=== PATIENT | female | born 1985 | race Caucasian/White ===

== ENCOUNTER → 2017-05-08 | Outpatient (CLI) | payer OTHER ==
--- NOTE | 2017-05-08 15:13 | MAMMOGRAPHY REPORT ---
BILATERAL DIGITAL DIAGNOSTIC MAMMOGRAM TOMOSYNTHESIS WITH CAD AND TARGETED RIGHT ULTRASOUND: 05/08/20 CLINICAL HISTORY: 32-year-old woman presents with a palpable lump in the right breast that she has no ticed since late March 2017. On physical exam her provider was able to feel the lump as well as a possible lump in the right axilla. No skin erythema, thickening or nipple discharge. TECHNIQUE: Bilateral breast tomosynthesis in addition to standard 2D mammography was performed. Curre nt study was also evaluated with a Computer Aided Detection (CAD) system. COMPARISON: No prior exams were available for comparison. BREAST COMPOSITION: The tissue of both breasts is heterogeneously dense, which may obscure small mas ses. FINDINGS: A triangle shaped palpable marker was placed on the skin of the 12:00 anterior right breast , denoting the area of palpable lump pointed out by the patient. There are a few punctate benign-dixon earing microcalcifications in the breasts. No obvious mass, focal area of architectural distortion, asymmetry or suspicious microcalcifications. Targeted ultrasound was performed in the area of palpable lump pointed out by the patient, in the 12: 00 right breast, 1 cm from the nipple. On palpation, there is a discrete firm mobile 1 to 1 and 1/2 centimeters mass. On ultrasound in the area of concern, there is a lobulated solid appearing mass ve rsus conglomerate of small masses measuring 8.2 x 5.0 x 8.0 mm. This could represent benign stromal fibrosis or a benign solid mass such as a fibroadenoma. Given the solid and palpable nature, definit cecelia characterization with tissue sampling via an ultrasound-guided core biopsy is recommended. Addit ional sonographic evaluation performed throughout the right axilla demonstrates several morphological ly normal lymph nodes within cortices. No suspicious mass or suspicious lymphadenopathy is identifie d. IMPRESSION: ACR BI-RADS CATEGORY 4: SUSPICIOUS, TARGETED ULTRASOUND ACR BI-RADS CATEGORY 4: SUSPICIO US 1. There is a lobulated hypoechoic solid mass in the 12:00 right breast, 1 cm from the nipple that c ould represent a benign mass such as a fibroadenoma or alternatively benign stromal fibrosis. Given that this area is palpable and appears solid on ultrasound, definitive characterization with an ultra sound-guided core biopsy is recommended to exclude phyllodes or malignancy. 2. No suspicious adenopathy or suspicious mass identified in the right axilla in the area of palpabl e concern identified by the patient's provider. Therefore, clinical follow-up is recommended. 3. No mammographic evidence of malignancy in the left breast. These results and recommendations were discussed with the patient at the time of the exam. She tenta tively scheduled the right breast ultrasound guided core biopsy prior to leaving our department. Approximately 10% of breast cancers are not detected with mammography. A negative mammographic report should not delay biopsy if a clinically suggestive mass is present. Leyla Fischer M.D. ay/:05/08/2017 13:20:52 Clinical Sales Consultant: Alvaro WIGGINS(Britt)(Cat[place]), [facility] letter sent: Abnormal 4/5 BI-RADS Code: ACR BI-RADS Category 4: Suspicious Ultrasound BI-RADS: ACR BI-RADS Category 4: Suspici ous
== END | disposition home or self-care (01) ==
LOC: C.MAMM 08:11
PROVIDERS: ATTEND Nurse Practitioner Women's Health
DX: N63.20 Unspecified lump in the left breast, unspecified quadrant (principal); N63.10 Unspecified lump in the right breast, unspecified quadrant

== ENCOUNTER → 2017-08-23 | Outpatient (CLI) | payer OTHER ==
--- NOTE | 2017-08-23 11:16 | Discharge Instructions ---
Discharge Instructions Procedure Procedure Date: Aug 23, 2017. Reason for visit: Right Palpable Mass. Discharge Discharge Date: Aug 23, 2017. Discharge Diagnosis: post right breast ultrasound guided core biopsy Instructions Activity Recommendations: Additional Limitations (see below) Return to School/Work: no limitations Recommended Home Diet: No Limitations Provider Instructions: ACTIVITY RECOMMENDATIONS: * No lifting, pushing, pulling or exercising the affected side for three days. RETURN TO SCHOOL/WORK: * You may return to work/school after the procedure, but do not perform any strenuous activities for 24 to 48 hours. MEDICATIONS: * Tylenol (two 325 mg) every four to six hours if needed for mild pain (if not allergic to Tylenol). DIET: * Resume previous diet. SPECIAL CARE INSTRUCTIONS: * Keep biopsy site dry for 24 hours. May shower after 24 hours, but do not soak (bathe) incision. * May remove Tegaderm (plastic patch) tomorrow AFTER showering. * Leave the steri-strips on for one week. Allow the steri-strips to fall off by themselves. If not off after one week, you may remove them. You may place a Bandaid crosswise over the strips, if desired. * Apply ice 10 minutes on and 10 minutes off as needed. * Wear a bra at bedtime to sleep more comfortably for 2-3 days. * Your referring physician should have the results after approximately 5 to 7 business days. * Call for unusual bleeding, fever, drainage, etc or if you have any questions call [phone] during normal business hours or after hours call Dr Fischer, . FOLLOW UP VISIT: Follow-up with Referring Physician as scheduled. Sumanth Walker Recommendations: Call your doctor if: * Temperature above 101 degrees * Pain not relieved by pain medicine ordered * There is increased drainage or redness from any incision * You have any unanswered questions or concerns. Your Doctors Instructions noted above were prepared by provider Leyla Fischer. Patient Signature Section: Patient Instructions Signature Page Ludivina Smith Patient (or Guardian) Signature/Date: I have read and understand the instructions given to me by my caregivers. Caregiver/RN/Doctor Signature/Date: The above-named patient and/or guardian has received patient instructions on this date. + Original Patient Signature Page (only) stays with chart. Please make copy for patient.
--- NOTE | 2017-08-23 15:38 | MAMMOGRAPHY REPORT ---
UNILATERAL RIGHT DIGITAL DIAGNOSTIC MAMMOGRAM TOMOSYNTHESIS: 08/23/2017 CLINICAL HISTORY: Status post ultrasound-guided core biopsy of a solid palpable mass in the 12:00 rig ht breast. Please refer to the report from right breast ultrasound-guided core biopsy performed at the same time for full detail. IMPRESSION: POST PROCEDURE IMAGING FOR MARKER PLACEMENT Please refer to the report from right breast ultrasound-guided core biopsy performed at the same time for full detail. Approximately 10% of breast cancers are not detected with mammography. A negative mammographic report should not delay biopsy if a clinically suggestive mass is present. Leyla Fischer M.D. ay/:08/23/2017 11:15:15 Automobile Accessories Installer: Marina BOOTH)(M), [facility] BI-RADS Code: Post Procedure Imaging For Marker Placement
--- NOTE | 2017-08-24 15:15 | MAMMOGRAPHY REPORT ---
ULTRASOUND GUIDED BIOPSY RIGHT BREAST: 08/23/2017 CLINICAL HISTORY: 32-year-old woman initially presented with a palpable lump in April 2017. Today she reports she feels 2 lumps and thinks that the palpable lump may have increased in size. No skin thickening or nipple discharge. COMPARISON: Bilateral diagnostic mammograms and right breast ultrasound dated 05/08/2017. PATIENT CONSENT: The procedure, risks and benefits were discussed with the patient and informed conse nt was obtained both verbally and in writing. Specific risks to this procedure include: bleeding, in fection, puncture of adjacent structure, nontarget biopsy, sampling error, pain, metal allergy and me dication reaction. PROCEDURE DESCRIPTION: Prior to the biopsy the patient reported her palpable lump in the 12:00 anteri or right breast had increased in size and now there were 2 lumps. Therefore, repeat targeted ultrasou nd was performed in the area of palpable concern prior to biopsy. The largest palpable pea-sized lum p is in the 12:00 periareolar right breast and targeted ultrasound over this area demonstrates an irr egular hypoechoic solid vascular mass measuring approximately 9.4 x 5.8 mm. Therefore, this is the i ntended target for core biopsy, given that it corresponds to the dominant palpable mass. The second area previously observed on prior ultrasound appears as dense stromal fibrosis, and given that it is not as prominent on palpation, this can be reassessed in 6 months with repeat targeted ultrasound, pe nding benign pathology results in the 12:00 axis. The current sonographic appearance is stable to th e ultrasound performed May 08, 2017. A time out was performed and the right breast was agreed as the site of biopsy. The skin was prepped and draped in the usual sterile fashion. The solid palpable 9.4 mm hypoechoic mass in the 12:00 peria reolar right breast was chosen as the target for biopsy. Subcutaneous and intraparenchymal 1% buffere d lidocaine, with and without epinephrine, was administered as local anesthesia. A skin incision was made. Through the incision, 5 samples were taken with a 14 gauge Achieve biopsy device. A ribbon sha ped metallic marker was placed at the biopsy site. Hemostasis was achieved after manual compression. The patient tolerated the procedure well and there was no immediate complication. The samples were s ent to the pathology department in an appropriately labeled container. Postprocedure right CC and ML tomosynthesis images were obtained. There is a new ribbon shaped biopsy marker clip in the 12:00 anterior right breast, at the site of palpable solid mass. No significant postbiopsy hematoma is identified. IMPRESSION: ULTRASOUND GUIDED BIOPSY Status post ultrasound-guided core biopsy of a palpable solid irregular 9.4 mm mass in the 12:00 omayra areolar right breast, with biopsy marker clip placed at the site. Pending benign pathology results, follow-up right diagnostic tomosynthesis mammograms and repeat targ eted ultrasound is recommended to ensure stability of another hypoechoic area also seen in the 12:00 right breast, contiguous with the palpable area. The patient will receive notification of the biopsy results from her referring physician. Leyla Fischer M.D. ay/:08/23/2017 15:27:11 Net Trainer: Jacqueline BOOTH)Alessandro), [facility]
== END | disposition home or self-care (01) ==
LOC: C.MAMM 10:14
PROVIDERS: ATTEND Nurse Practitioner Women's Health
DX: N63.10 Unspecified lump in the right breast, unspecified quadrant (principal); D05.11 Intraductal carcinoma in situ of right breast; R92.0 Mammographic microcalcification found on diagnostic imaging of breast

== ENCOUNTER → 2017-10-31 | Day surgery (SDC) | payer OTHER ==
[2017-10-20 14:12] VITALS: Ht 157.5 cm; Wt 65.5 kg
[~2017-10-31] VITALS: Ht 157.5 cm; Wt 65.5 kg
[~2017-10-31] MED LIST: AMPH30TA2 PO; ATROPINE SULFATE 0.1 MG/ML 5ML SYR IV PRN; ATV/1 PO; BUPIVACAINE 0.5 % 5 MG/1 ML MPF 30ML VIAL ONE; DULO60CA44 PO; ESCI10TA17 PO; EpHEDrine SULFATE 50MG/5ML SYR ONE; EpHEDrine SULFATE INJ 50 MG/ML AMP IV PRN; FENTANYL CITRATE INJ 50 MCG/1 ML 2 ML VIAL ONE; FLUMAZENIL 0.1 MG/1 ML 10 ML VIAL IV PRN; LACTATED RINGER'S 1000ML 1,000 ML IV SCH; LIDOCAINE HCL 2% 2 ML VIAL (20MG/ML) ONE; LISD70CA PO; MIDAZOLAM HCL 1 MG/ML 2ML VIAL ONE; NALOXONE HCL 0.4 MG/1 ML VIAL/CARP IV PRN; ONDANSETRON INJ 2 MG/ML 2 ML VIAL IV PRN; ONDANSETRON INJ 2 MG/ML 2 ML VIAL ONE; OXYC-57 PO; OXYCODONE/ACETAMINOPHEN 5-325 TAB PO PRN; PROMETHAZINE HCL INJ 12.5 MG in SODIUM CHLORIDE 0.9% 50ML 50 ML IV PRN; PROPOFOL IV EMULSION 10 MG/ML 20 ML VIAL ONE; SODIUM CHLORIDE 0.9% 1000ML 1,000 ML IV SCH
--- NOTE | 2017-10-31 08:40 | History & Physical Bridge - SC ---
H&P Re-Evaluation Bridge Note: I have examined the patient, reviewed the History & Physical and in the interval since the performance of the History & Physical I have noted the following changes of clinical significance: No changes noted
--- NOTE | 2017-10-31 09:47 | [facility] Post Operative Brief Note ---
Immediate Operative Summary Operative Date October 31, 2017. Pre-Operative Diagnosis Intraductal Papilloma of Right Breast Post-Operative Diagnosis Same Procedure(s) Performed Right Breast Biopsy With Needle Localization Surgeon Dr. Ferguson Senior Engineering Technician Surgeon(s) Concepción Lubin PA-C Estimated Blood Loss 4 mL Findings Consistent with Post-Op Diagnosis mammo confirmed excision of wire, clip and specimen Specimens A. Right Breast Biopsy - out @ 0934. Sent to [facility]. Long suture - Lateral; Double suture - Deep; Short suture - Superior Drains None Anesthesia Type General Complication(s) none Disposition Accompanied Pt To Recover: no Disposition: Recovery Room / PACU
--- NOTE | 2017-10-31 09:50 | [facility] Operative Report ---
Operative Report Operative Date October 31, 2017. Pre-Operative Diagnosis Intraductal Papilloma of Right Breast Post-Operative Diagnosis Same Procedure(s) Performed Right Breast Biopsy With Needle Localization Surgeon Dr. Ferguson Buttonhole Marker Surgeon(s) Concepción Lubin PA-C Estimated Blood Loss 4 mL Findings mammo confirmed excision of wire, clip and specimen Specimens A. Right Breast Biopsy - out @ 0934. Sent to [facility]. Long suture - Lateral; Double suture - Deep; Short suture - Superior Drains None Anesthesia Type General Complication(s) none Disposition no Recovery Room / PACU Indications 32-year-old female with atypical papilloma, plan for right breast wire localized excisional biopsy. The risks of the procedure were discussed, all questions were answered, and the patient agreed to proceed with surgery as planned. Description of Procedure The patient had a localization wire placed in radiology prior to surgery. The films were reviewed for incisional planning. The patient was properly identified, consented, and taken to the operating room where she was placed in the supine position. General endotracheal anesthesia was induced. SCDs and a safety belt were placed. Preoperative antibiotics were administered. The patient's bilateral chest was prepped and draped in the standard sterile fashion. Surgical timeout was performed and all parties were in agreement that this was the correct patient and procedure to be performed and we continued as planned. A partial circumareolar incision was made in the upper outer quadrant of the right breast and deepened down through the subcutaneous tissue with electrocautery. Flaps were raised in all directions. Wire was delivered into the incision. The breast mass was circumferentially dissected, excised, and passed off the table as specimen. The specimen was oriented. A mammogram was performed of the specimen in radiology and confirmed excision of the wire, clip , and previously imaged abnormality. The wound was irrigated and hemostasis was confirmed. The skin was closed with interrupted 3-0 Vicryl deep dermal sutures, followed by 4-0 Monocryl running subcuticular suture. Dermabond was placed over the wound. The patient was extubated in the operating room and taken to the PACU where she recovered without apparent incident. All sponge, instrument and needle counts were correct at the conclusion of the procedure. The patient tolerated the procedure well. The physician's general office assistant was present and scrubbed for the entire to the procedure. He was essential in positioning the patient, prepping and draping, retraction and exposure, removal of the specimen, closure of the incision, and placement of the dressings. I attest to the content of the Intraoperative Record and any orders documented therein. Any exceptions are noted below.
--- NOTE | 2017-10-31 10:12 | Discharge Instructions ---
Discharge Instructions Date of Service October 31, 2017. Visit Reason for Visit: Intraductal Papilloma Of Right Breast Discharge Discharge Diagnosis / Problem: Intraductal Papilloma of Right Breast Discharge Goals Goal(s): Decrease discomfort, Improve function Activity Recommendations Activity Limitations: as noted below Lifting Limitations: no more than 25 pounds, until after follow-up appointment Exercise/Sports Limitations: until after follow-up appointment May Resume Sexual Activity: after follow-up appointment Shower/Bathe: tomorrow Driving or Machine Use: resume 3 days after discharge (Please do not drive while using narcotic pain medication) Anesthesia . Post Anesthesia Instructions: If you have had General Anesthesia or IV Sedation: * Do not drive today. * Resume driving when surgeon permits. * Do not make important decisions or sign legal documents today. * Call surgeon for: 1. Temperature elevations greater than 101 degrees F. 2. Uncontrollable pain. 3. Excessive bleeding. 4. Persistent nausea and vomiting. 5. Medication intolerance (nausea, vomiting or rash). * For nausea and vomiting use only clear liquids such as: tea, soda, bouillon until nausea subsides, then gradually increase diet as tolerated. * If you have any concerns or questions, call your surgeon's office. If physician is unavailable and it is an emergency, call 911 or go to the nearest emergency room. . Instructions / Follow-Up Instructions / Follow-Up You have surgical glue covering your incision. Please allow this to fall off on its own. You have been prescribed Percocet to take as needed for pain relief. Please use as directed. Follow-up with Dr. Ferguson in 1-2 weeks. Please contact our office at to schedule an appointment if you have not done so already. Please contact our office with any further questions or concerns. [facility] [address] [place] [address]. Diet Recommendations Recommended Home Diet: no limitations, resume previous diet Procedures Procedures Performed: Right Breast Biopsy With Needle Localization Pending Studies Studies pending at discharge: yes List of pending studies: Pathology Medical Emergencies . Who to Call and When: Medical Emergencies: If at any time you feel your situation is an emergency, please call 911 immediately. . Non-Emergent Contact Non-Emergency issues call your: Primary Care Provider, Surgeon Call Non-Emergent contact if: you have a fever, temperature is above 101.5, your pain is not controlled, your pain is worsening, wound has increased drainage, wound has increased redness . . "Provider Documentation" section prepared by Richard Lubin. . [place] Drug Monitoring Program Search Results: patient reviewed within database, no issues identified
[2017-10-31] MEDS: FENTANYL CITRATE INJ 50 MCG/1 ML 2 ML VIAL IV PRN ×2 (10:18→10:31)
[2017-10-31 11:09] VITALS: TEMP 36.7
--- NOTE | 2017-10-31 11:16 | Anesthesia Progress Nt - [facility] ---
Anesthesia Post Op Note Date & Time October 31, 2017 at 11:16 Vital Signs Pain Intensity: 3 Vital Signs Past 12 Hours Date Time Temp Pulse Resp B/P (MAP) Pulse Ox O2 Delivery O2 Flow Rate FiO2 10/31/17 11:09 36.7 78 18 125/85 (98) 99 Room Air 10/31/17 10:51 37.2 83 18 128/86 98 Room Air 10/31/17 10:51 81 16 10/31/17 10:51 82 16 128/86 99 10/31/17 10:50 89 28 10/31/17 10:50 89 28 99 10/31/17 10:46 137/91 10/31/17 10:45 83 19 10/31/17 10:45 83 19 98 10/31/17 10:41 126/86 10/31/17 10:40 72 16 100 10/31/17 10:40 71 16 10/31/17 10:36 129/81 10/31/17 10:35 73 29 10/31/17 10:35 73 29 100 10/31/17 10:31 129/83 10/31/17 10:30 73 22 10/31/17 10:30 72 22 100 10/31/17 10:26 121/86 10/31/17 10:25 72 18 100 10/31/17 10:25 72 18 10/31/17 10:21 131/82 10/31/17 10:20 74 9 100 10/31/17 10:20 74 9 10/31/17 10:16 136/88 10/31/17 10:15 78 7 100 10/31/17 10:15 77 7 10/31/17 10:11 128/89 10/31/17 10:10 85 13 100 10/31/17 10:10 84 13 10/31/17 10:06 132/91 10/31/17 10:05 80 5 100 10/31/17 10:05 81 5 10/31/17 10:01 133/89 10/31/17 10:00 36.8 83 20 133/89 100 Mask 7 10/31/17 07:51 36.9 79 16 121/87 (98) 99 Room Air Notes Mental Status: alert / awake / arousable, participated in evaluation Pt Amnestic to Procedure: Yes Nausea / Vomiting: adequately controlled Pain: adequately controlled Airway Patency, RR, SpO2: stable & adequate BP & HR: stable & adequate Hydration State: stable & adequate Anesthetic Complications: no major complications apparent
[2017-10-31 11:33] VITALS: BP 120/78; PULSE 82; O2SAT 99
--- NOTE | 2017-10-31 13:17 | MAMMOGRAPHY REPORT ---
SPECIMEN RIGHT BREAST: 10/31/2017 CLINICAL HISTORY: 32-year-old woman with a biopsy-proven atypical intraductal papilloma in the 12:00 right breast. She presents for preoperative wire localization prior to excisional biopsy. Please refer to the report from right breast ultrasound-guided preoperative needle and wire localizat ion performed at the same time for full detail. IMPRESSION: SPECIMEN Please refer to the report from right breast ultrasound-guided preoperative needle and wire localizat ion performed at the same time for full detail. Leyla Fischer M.D. ay/:10/31/2017 08:50:58 Blind Hooker: Taylor BOOTH)(M), [facility]
--- NOTE | 2017-10-31 13:17 | MAMMOGRAPHY REPORT ---
NEEDLE LOCALIZATION RIGHT BREAST: 10/31/2017 CLINICAL HISTORY: Biopsy-proven atypical intraductal papilloma in the 12:00 right breast. Patient pr esents for preoperative wire localization prior to excisional biopsy. COMPARISON: Comparison is made to exams dated: 05/08/2017 ultrasound, 08/23/2017 mammogram, and 05/08 mammogram - . Patient denied eating or drinking anything this morning that would preclude anesthesia. She also den ied allergy to lidocaine. PATIENT CONSENT: The risks of the procedure were explained to the patient and informed consent was obtained. PROCEDURE DESCRIPTION: Prior right breast imaging was reviewed including mammograms and ultrasound pe rformed 05/08/2017, post procedure mammograms dated 08/23/2017. The solid palpable hypoechoic mass wi th associated ribbon-shaped biopsy marker clip in the 12:00 anterior right breast is the intended tar get for preoperative localization. Repeat targeted ultrasound was performed in the 12:00 periareolar right breast. A lobulated hypoecho ic solid mass is identified in the superficial breast located 5 mm to 10 mm deep to the dermis. This is the intended target for wire localization. The skin of the right breast was cleansed with Betadi ne. 1% buffered Lidocaine without epinephrine was administered as local anesthesia. A 5cm Phelps II needle and wire combination was inserted into the breast. Optimal positioning was confirmed and the needle was removed leaving the wire in place , as per surgeon's preference. Post ultrasound localization right CC and ML tomosynthesis images were obtained which demonstrates th e localizing wire is just anterior to the ribbon-shaped biopsy marker clip by 1 mm. The entire proce dure including approach and needle length were discussed with the operating surgeon prior to surgery. The patient tolerated the procedure well and there was no immediate complication. She was sent to the operating room in satisfactory condition. The specimen radiograph demonstrates the localizing wire and ribbon-shaped biopsy marker clip compati ble with successful preoperative localization and subsequent surgical excision. IMPRESSION: NEEDLE LOCALIZATION Status post preoperative needle and wire localization for a biopsy-proven atypical intraductal papill jovi in the 12:00 anterior right breast. The imaged specimen includes the intended abnormality. The patient will receive notification of the biopsy results from her referring physician. Leyla Fischer M.D. ay/:10/31/2017 11:01:27 Baker Helper: Alvaro WIGGINS(Britt)(M),
--- NOTE | 2017-10-31 13:17 | MAMMOGRAPHY REPORT ---
UNILATERAL RIGHT DIGITAL DIAGNOSTIC MAMMOGRAM TOMOSYNTHESIS: 10/31/2017 CLINICAL HISTORY: 32-year-old woman with a biopsy-proven atypical intraductal papilloma in the 12:00 anterior right breast. She presents for preoperative wire localization prior to excisional biopsy. Please refer to the report from right breast ultrasound-guided preoperative needle and wire localizat ion performed at the same time for full detail. IMPRESSION: Please refer to the report from right breast ultrasound-guided preoperative needle and wire localizat ion performed at the same time for full detail. Approximately 10% of breast cancers are not detected with mammography. A negative mammographic report should not delay biopsy if a clinically suggestive mass is present. Leyla Fischer M.D. ay/:10/31/2017 08:51:37 Laborer Pipeline: Alvaro BOOTH)([place]), [facility] BI-RADS Code: n/a
== END | disposition home or self-care (01) ==
LOC: X.SURG 07:37
PROVIDERS: ATTEND Surgery
DX: D24.1 Benign neoplasm of right breast (principal); N62 Hypertrophy of breast; N60.21 Fibroadenosis of right breast; R92.0 Mammographic microcalcification found on diagnostic imaging of breast; Z91.018 Allergy to other foods; Z98.890 Other specified postprocedural states; Z82.49 Family history of ischemic heart disease and other diseases of the circulatory system; Z82.3 Family history of stroke; Z79.899 Other long term (current) drug therapy